=== PATIENT | female | born 1955 | race Caucasian/White ===

== ENCOUNTER 2016-09-02 06:12 | Emergency (ER) | payer BC ==
--- NOTE | 2016-09-02 06:36 | EDM.PDOC ---
ED HPI ENT - General Chief Complaint: ENT Problem Stated Complaint: NOSE BLEED 45 MIN DIZZYNESS/ LIGHT HEADED Time Seen by Provider: 09/02/16 06:34 - History of Present Illness INITIAL COMMENTS - FREE TEXT/NARRATIVE: 61-year-old female presents emergency room with a nosebleed. This started around 5:30 this morning lasted approximately 45 minutes. She's had more frequent nosebleeds she had one on Tuesday the lasted 10 minutes one on Tuesday the lasted 2 minutes. The patient is concerned that her work environment has really dry air and then there is exposure to alcohol and she gets a burning sensation in her nose. This is getting more bothersome for her. The patient has a headache with this but she has headaches nearly every day the headache is a typical headache. The patient is not on any blood thinners. She is treated for hypertension and she did take her blood pressure medication this morning he takes metoprolol twice daily. - Related Data Allergies/ADRs: Allergies Allergy/AdvReac Type Severity Reaction Status Date / Time amoxicillin Allergy Abdominal Verified 09/02/16 06:32 Pain codeine Allergy Abdominal Verified 09/02/16 06:32 Pain hydrocodone AdvReac Hypertensio Verified 09/02/16 06:31 n Home Meds: Home Meds Metoprolol Tartrate 50 tab PO BID 09/02/16 [History] Omeprazole 20 mg PO DAILY 09/02/16 [History] ED ROS ENT - Review of Systems Review Of Systems: See Below Constitutional: Reports: no symptoms HEENT: Reports: Nosebleed Respiratory: Reports: No Symptoms Cardiovascular: Reports: No symptoms GI/Abdominal: Reports: No symptoms Neurological: Reports: Dizziness, Headache. Denies: Confusion, Numbness, Pre- Existing Deficit, Seizure, Difficulty Walking ED EXAM, ENT - Physical Exam Exam: See Below Exam Limited By: No limitations General Appearance: alert, no apparent distress, other (No active bleeding at this time) Eye Exam: bilateral eye: EOMI, normal inspection, PERRL Ears: normal external exam, normal canal, normal TMs Nose: normal inspection, normal mucousa, other (No active bleeding at this time examination the nasal septum and visible mucosa does not show any clear bleeding site however her septum is more hyperemic than one would expect.) Mouth/Throat: Normal inspection, Normal gums, Normal lips, Normal oropharynx, Normal teeth Head: atraumatic, normocephalic Neck: normal inspection, supple, non-tender, full range of motion. No: lymphadenopathy (L), lymphadenopathy (R) Respiratory/Chest: no respiratory distress, lungs clear, normal breath sounds, no accessory muscle use, chest non-tender Cardiovascular: regular rate, rhythm, no edema, no murmur Extremities: normal inspection, no pedal edema Neurological: other (Cranial nerves II through XII grossly intact the muscle groups the upper and lower extremities are equal and appropriate bilaterally deep tendon reflexes at the brachial radialis and patella tendons are equal and appropriate bilaterally cerebellar testing is entirely within normal limits) Course - Vital Signs Last Recorded V/S: Last Vital Signs Temp 36.8 C 09/02/16 06:25 Pulse 73 09/02/16 06:25 Resp 20 09/02/16 06:25 BP 182/97 H 09/02/16 06:25 Pulse Ox 99 09/02/16 06:25 - Orders/Labs/Meds Orders: Active Orders 24 hr Category Date Time Status INR,PT,PROTHROMBIN TIME [COAG] Stat Lab 09/02/16 06:55 Received PTT,PARTIAL THROMBOPLSTIN TIME [COAG] Stat Lab 09/02/16 06:55 Received Labs: Laboratory Tests 09/02/16 Range/Units 06:55 WBC 6.60 (3.98-10.04) K/mm3 RBC 4.75 (3.98-5.22) M/mm3 Hgb 14.3 (11.2-15.7) gm/L Hct 42.6 (34.1-44.9) % MCV 89.7 (79.4-94.8) fl MCH 30.1 (25.6-32.2) pg MCHC 33.6 (32.2-35.5) g/dl RDW Std Deviation 42.4 (36.4-46.3) fL Plt Count 213 (182-369) K/mm3 MPV 10.0 (9.4-12.3) fl Neut % (Auto) 58.8 (34.0-71.1) % Lymph % (Auto) 29.2 (19.3-51.7) % Vilas % (Auto) 8.6 (4.7-12.5) % Eos % (Auto) 3.0 (0.7-5.8) Baso % (Auto) 0.2 (0.1-1.2) % Neut # (Auto) 3.88 (1.56-6.13) K/mm3 Lymph # (Auto) 1.93 (1.18-3.74) K/mm3 Vilas # (Auto) 0.57 H (0.24-0.36) K/mm3 Eos # (Auto) 0.20 (0.04-0.36) K/mm3 Baso # (Auto) 0.01 (0.01-0.08) K/mm3 - Re-Assessments/Exams Free Text/Narrative Re-Assessment/Exam: 09/02/16 07:30 Patient has done well here in the emergency room. Neurologic testing normal she' s not had any recurrence of her bleeding she did have some [place] put under her nose. We are awaiting her labs. Patient does give a history of chronic ringing in her left ear. She's not sure how long this is been going on. I have strongly recommended she followup for audiology evaluation. Her blood pressure was elevated on admission however this is normalized. Departure - Departure Time of Disposition: 07:34 Disposition: Home, Self-Care 01 Clinical Impression: Epistaxis Forms: ED Department Discharge Additional Instructions: Return to the emergency room with any questions or problems. Followup with Dr. Mixon for a hearing evaluation. [phone]. Use [place] will under your nose as we did in the emergency room or use Preparation H. Discussed your work environment with your employer and see if they have another position you can do. - My Orders Last 24 Hours: My Active Orders 09/02/16 06:55 INR,PT,PROTHROMBIN TIME [[facility]AG] Stat PTT,PARTIAL THROMBOPLSTIN TIME [COAG] Stat - Assessment/Plan Last 24 Hours: My Active Orders 09/02/16 06:55 INR,PT,PROTHROMBIN TIME [COAG] Stat PTT,PARTIAL THROMBOPLSTIN TIME [COAG] Stat
[2016-09-02 07:55] VITALS: BP 149/81
== END 2016-09-02 07:50 | disposition home or self-care (01) ==
LOC: JD.ED 06:12
DX: R04.0 Epistaxis (principal); Z88.1 Allergy status to other antibiotic agents; Z88.5 Allergy status to narcotic agent; Z79.899 Other long term (current) drug therapy
CPT/HCPCS: 36415; 85025; 85610; 85730; 99282; 99283